=== PATIENT | female | born 1960 | race Caucasian/White ===

== ENCOUNTER 2022-10-07 18:58 | Emergency (ER) | payer MEDICAID, SELFPAY ==
[2022-10-07 18:58] VITALS: BP 148/79; PULSE 77; RESP 20; TEMP 37.4; O2SAT 97; BMI 34.3
--- NOTE | 2022-10-07 20:02 | EXP.UTC ---
Discharge Plan Disposition Patient Disposition: Home, Self-Care Condition: Good Prescriptions Prescriptions: New ondansetron 4 mg Tablet,Disintegrating 4 mg PO Q8H PRN (Reason: Nausea) Qty: 20 0RF Referrals Follow up/Referrals: Provider,Referral, MD [Primary Care Provider] - See instructions Activity Restrictions/Add. Instructions Additional Instructions/Restrictions: Drink plenty of fluids. Take tylenol or ibuprofen for pain or fever. Take the medications as directed. Follow up with your regular doctor. GO TO THE ER FOR ANY WORSENING SYMPTOMS Clinical Impressions Clinical Impression: Acute viral syndrome Instructions Patient Instructions: Coronavirus Disease 2019, Preventing the Spread of Coronavirus Discharge Instructions Dis[place] ED [place]car[place] Yi [facility] [place] General Stated complaint: vomiting, poss HBP Time Seen by Provider: 10/07/22 20:01 History of Present Illness Provider Complaint: She states that since this morning she has had had nausea and vomiting. She denies congestion, cough and shortness of breath. She has had diarrhea also. Related Data Previous Rx's Medication Instructions Recorded ondansetron 4 mg disintegrating 4 mg PO Q8H PRN Nausea #20 tabs 10/07/22 tablet Allergies Allergy/AdvReac Type Severity Reaction Status Date / Time aspirin Allergy Mild Verified 10/07/22 20:14 codeine Allergy Mild Verified 10/07/22 20:14 penicillin V Allergy Mild Verified 10/07/22 20:14 [facility] Disclaimer: The information contained in this section may have been updated after the patient was seen, as this information can be updated by other users. Social History Smoking Status: Never smoker alcohol intake: never current occupational status: employed Travel in the last 8 weeks: None ROS Obtained: Yes All systems reviewed & no additional complaints except as documented Constitutional Constitutional: Denies chills, Denies fever(s) and Reports poor appetite ENT Ears, Nose, Mouth, and Throat: Denies dizziness and Denies sore throat Cardiovascular Cardiovascular: Denies dyspnea Respiratory Respiratory: Denies chest congestion, Denies cough and Denies dyspnea Gastrointestinal Gastrointestingal: Reports as per HPI; Denies abdominal pain Genitourinary Female Genitourinary: Denies difficulty voiding, Denies dysuria, Denies hematuria, Denies urinary frequency, Denies urinary incontinence, Denies urinary hesitancy and Denies urinary urgency Musculoskeletal Musculoskeletal: Denies arthralgias Integumentary/Breasts Skin/Breast: Denies rash Neurologic Neurologic: Denies dizziness Physical Exam General General appearance: alert and in no apparent distress Head Head exam: atraumatic, normocephalic and normal inspection Eye Eye exam: Present normal appearance, PERRL and EOMI ENT ENT exam: Present normal exam, normal oropharynx, mucous membranes moist, TM's normal bilaterally and normal external ear exam Neck Neck exam: Present normal inspection, full ROM and trachea midline; Absent meningismus or lymphadenopathy Chest Chest inspection: Present normal inspection and symmetric chest wall rise; Absent tenderness Respiratory Respiratory exam: Present normal lung sounds bilaterally; Absent respiratory distress Cardiovascular Cardiovascular exam: Present regular rate and normal rhythm; Absent JVD Abdominal Exam Abdominal exam: Present soft and normal bowel sounds; Absent distention, tenderness or guarding Extremities Exam Extremities exam: Present normal inspection, full ROM and normal capillary refill; Absent calf tenderness Back Exam Back exam: Present normal inspection; Absent tenderness Neurological Exam Neurological exam: Present alert and oriented X3 Psychiatric Psychiatric exam: Present normal affect and normal mood Skin Skin exam: Present warm, dry, intact and normal color Lymphatic Lymphatic Findings: no adeno
[2022-10-07 20:17] LABS: UTC Strep Screen (Rapid) Negative (Negative)
[2022-10-07 20:18] LABS: UTC Influenza A Antigen Negative (Negative); UTC Influenza B Antigen Negative (Negative)
[2022-10-07 20:46] VITALS: BP 148/79; PULSE 77; RESP 20; TEMP 37.4; O2SAT 97
== END 2022-10-07 20:46 | disposition home or self-care (01) ==
PROVIDERS: Emergency Provider Nurse Practitioner Family
DX: B34.9 Viral infection, unspecified (principal); R11.2 Nausea with vomiting, unspecified; R19.7 Diarrhea, unspecified
CPT/HCPCS: 87804; 87880; 99212; 99213; G0463

== ENCOUNTER 2022-10-20 13:54 | Emergency (ER) | payer MEDICAID, SELFPAY ==
[2022-10-20 13:54] VITALS: BP 150/74; PULSE 73; RESP 18; TEMP 37.1; O2SAT 97; BMI 34.3
[2022-10-20 14:00] VITALS: BP 155/82; PULSE 66; O2SAT 98
--- NOTE | 2022-10-20 14:06 | HMH.EDGENADL ---
Discharge Plan Disposition Patient Disposition: Home, Self-Care Prescriptions Prescriptions: No Action ondansetron 4 mg Tablet,Disintegrating 4 mg PO Q8H PRN (Reason: Nausea) Qty: 20 0RF Referrals Follow up/Referrals: Provider,Referral, [Primary Care Provider] - See instructions Activity Restrictions/Add. Instructions Additional Instructions/Restrictions: You may take Tylenol or ibuprofen [id number] as needed for pain. Please follow-up with your primary care physician if you have any other concerns. Clinical Impressions Clinical Impression: Cervical muscle strain, Chest wall contusion, Left shoulder strain, Muscle strain of left upper arm Discharge ED Provider: Yuval Chadwick Adult HPI General Chief complaint: Fall Stated complaint: Fall Time Seen by Provider: 10/20/22 14:06 History of Present Illness HPI narrative: Patient is a 62-year-old female presenting after a fall. She is accompanied by her daughter who is also historian. Patient states that she fell down mechanically 6 stairs yesterday. She fell with her neck extended onto the back of her head as well as onto her left shoulder. States that her pain is primarily along the lower aspect of the midline of her cervical spine as well as the left shoulder and left anterior chest. Patient has been ambulatory. She is taken ibuprofen at home with mild improvement presented today to get assessed. Patient denies any neurologic complaints. Denies any abdominal discomfort or other long bone pain. She is not on anticoagulation. Denies any loss of consciousness or headache. Denies any other neurologic symptoms. Related Data Previous Rx's Medication Instructions Recorded ondansetron 4 mg disintegrating 4 mg PO Q8H PRN Nausea #20 tabs 10/07/22 tablet Allergies Allergy/AdvReac Type Severity Reaction Status Date / Time aspirin Allergy Mild Verified 10/07/22 20:14 codeine Allergy Mild Verified 10/07/22 20:14 penicillin V Allergy Mild Verified 10/07/22 20:14 [facility] Disclaimer: The information contained in this section may have been updated after the patient was seen, as this information can be updated by other users. Social History (Updated 10/07/22 @ 20:42 by Giancarlo Yi APRN) Smoking Status: Never smoker alcohol intake: never current occupational status: employed Travel in the last 8 weeks: None ROS Obtained: Yes All systems reviewed & no additional complaints except as documented Physical Exam General General appearance: alert, in no apparent distress and appears intoxicated Head Head exam: atraumatic and normocephalic Eye Eye exam: Present normal appearance, PERRL and EOMI ENT ENT exam: Present normal exam and normal oropharynx Neck Neck exam: Present normal inspection, full ROM, trachea midline and tenderness (There is midline cervical spine tenderness C5-6 and 7) Chest Chest inspection: Present normal inspection and tenderness (Left anterior chest wall tenderness) Respiratory Respiratory exam: Present normal lung sounds bilaterally; Absent respiratory distress, wheezes or stridor Cardiovascular Cardiovascular exam: Present regular rate and normal rhythm Abdominal Exam Abdominal exam: Present soft; Absent distention or tenderness Extremities Exam Extremities exam: Present other (All long bones otherwise palpated without any tenderness except for left humerus which is significant tenderness also there is tenderness over the lateral aspect of the left clavicle) Neurological Exam Neurological exam: Present alert and oriented X3 Medical Decision Making Bahman Inquiry Pt receiving controlled substance: No Vital Signs: 10/20/22 13:54 Temperature 98.7 F Temperature Source Oral Pulse Rate [Right Radial] 73 Respiratory Rate 18 Blood Pressure [Right Arm] 150/74 H Blood Pressure Mean [Right Arm] 99 Blood Pressure Source [Right Arm] Automatic Cuff Blood Pressure Position [Right Arm] Sitting 02 Sat by Pulse
--- NOTE | 2022-10-20 14:11 | XR_ITS ---
FINAL REPORT CLINICAL HISTORY: fall, pain FINDINGS: PORTABLE CHEST The heart is normal in size. The mediastinum is unremarkable. The lungs are clear. There is no pneumothorax. IMPRESSION: No acute process. Reviewed, Interpreted and Dictated by Mejia Samson MD Transcribed by Jazmine Patel Authenticated and [facility]
--- NOTE | 2022-10-20 14:11 | XR_ITS ---
FINAL REPORT CLINICAL HISTORY: fall, pain FINDINGS: LEFT SHOULDER 3 views of the left shoulder were obtained. There is no acute fracture or dislocation. The joint spaces are intact. There is no soft tissue abnormality. IMPRESSION: No acute bony abnormality. Reviewed, Interpreted and Dictated by Mejia Samson MD Transcribed by Jazmine Patel Authenticated and [facility]
--- NOTE | 2022-10-20 14:11 | CT_ITS ---
FINAL REPORT TECHNIQUE: Axial images were obtained of the cervical spine by computed tomography. Coronal and sagittal reconstruction process performed. This study was performed with techniques to keep radiation doses as low as reasonably achievable (ALARA). Individualized dose reduction techniques using automated exposure control or adjustment of mA and/or kV according to the patient's size were employed. CLINICAL HISTORY: fall, pain midline C5-7 FINDINGS: Cervical vertebrae show normal height. There is abnormal disc space narrowing at C4-5, C5-6 and C6-7 with posterior osteophytes and bilateral neuroforaminal narrowing. There is no malalignment. The facets are properly aligned. IMPRESSION: No acute bony abnormality identified. Hypertrophic changes at C4-5, C5-6 and C6-7. Reviewed, Interpreted and Dictated by Mejia Samson MD Transcribed by Jazmine Patel Authenticated and [facility]
--- NOTE | 2022-10-20 14:11 | XR_ITS ---
FINAL REPORT CLINICAL HISTORY: fall, pain FINDINGS: LEFT HUMERUS 2 views were obtained. There is no acute fracture or dislocation. The joint spaces are intact. There is no soft tissue abnormality. IMPRESSION: No acute bony abnormality. Reviewed, Interpreted and Dictated by Mejia Samson MD Transcribed by Jazmine Patel Authenticated and [facility]
--- NOTE | 2022-10-20 14:49 | PC.NURSE ---
called rad to check on status of rad reading, caleb states images are locked so they should be being ready
--- NOTE | 2022-10-20 15:34 | PC.NURSE ---
contacted rad to check on status of ct reading, states will send down preliminary reading
--- NOTE | 2022-10-20 15:35 | PC.NURSE ---
GOPI VALENCIA at discussing test results
[2022-10-20 16:02] VITALS: BP 162/84; PULSE 64; RESP 16; TEMP 37.1; O2SAT 99
== END 2022-10-20 16:02 | disposition home or self-care (01) ==
PROVIDERS: Emergency Provider Student in an Organized Health Care Education/Training Program
DX: S16.1XXA Strain of muscle, fascia and tendon at neck level, initial encounter (principal); S20.219A Contusion of unspecified front wall of thorax, initial encounter; S46.912A Strain of unspecified muscle, fascia and tendon at shoulder and upper arm level, left arm, initial encounter; W10.9XXA Fall (on) (from) unspecified stairs and steps, initial encounter
CPT/HCPCS: 71045; 72125; 73030; 73060; 99285

== ENCOUNTER 2022-12-02 07:54 | Emergency (ER) | payer MEDICAID, SELFPAY ==
--- NOTE | 2022-12-02 07:54 | ECG_ITS ---
APPROVED REPORT Exam: Resting ECG HR:56 bpm ECG Measurements Heart Rate 56 AXES VT 142 P 60 QRSd 95 QRS 40 QT 387 T 22 QTc 380 Conclusion SINUS BRADYCARDIA NONSPECIFIC T-WAVE ABNORMALITY BORDERLINE ECG INTERPRETATION BASED ON A DEFAULT AGE OF 40 YEARS UNCONFIRMED REPORT Electronically signed by : Tato Toledo MD 12/05/2022 16:50:20
[2022-12-02 07:59] VITALS: BP 151/82; PULSE 61; RESP 18; TEMP 36.4; O2SAT 97; BMI 34.3
--- NOTE | 2022-12-02 08:07 | XR_ITS ---
FINAL REPORT CLINICAL HISTORY: chest pain COMPARISON: 10/20/2022 FINDINGS: TWO-VIEW CHEST The heart size is normal. The mediastinum is normal. The lungs are clear. There is no pneumothorax. IMPRESSION: No acute cardiopulmonary process. Reviewed, Interpreted and Dictated by Mejia Samson MD Transcribed by Yris Evans Authenticated and [facility]
--- NOTE | 2022-12-02 08:14 | HMH.EDGENADL ---
Discharge Plan Disposition Patient Disposition: Home, Self-Care Prescriptions Prescriptions: No Action ondansetron 4 mg Tablet,Disintegrating 4 mg PO Q8H PRN (Reason: Nausea) Qty: 20 0RF Referrals Follow up/Referrals: Provider,Referral, [Primary Care Provider] - See instructions Activity Restrictions/Add. Instructions Additional Instructions/Restrictions: Your headache cough general malaise and conjunctivitis are all consistent with a viral syndrome most likely adenovirus as discussed. Your emergency work-up was otherwise negative and we will treat you supportively meaning we will treat your symptoms. I would take Tylenol and ibuprofen as needed at home return to the emergency department as needed. Clinical Impressions Clinical Impression: Headache, Acute viral syndrome, Conjunctivitis, URI (upper respiratory infection) Discharge ED Provider: Raven Chadwick General Adult HPI General Chief complaint: Chest Pain Stated complaint: chest pain Time Seen by Provider: 12/02/22 08:14 History of Present Illness HPI narrative: Patient is a 62-year-old female presenting with multiple complaints. First complaint is that she has had a cough for the last 48 hours. States she has had some intermittent chest pain associated with this that is nonspecific nonradiating not associated with dyspnea or diaphoresis or nausea. Additionally she states she woke up this morning with pinkeye . Lastly she states that she has had some dizziness that is intermittent in nature. She states her coordination and vision has not been off and this has not been consistent at any given moment. She does state that multiple household members are sick currently including her grandchild who is around her every day came in yesterday with a febrile illness and her son as well started to have nausea. Patient denies any other focal neurologic deficits currently denies any chest pain or dyspnea at the moment. States she overall just does not feel well. Related Data Previous Rx's Medication Instructions Recorded ondansetron 4 mg disintegrating 4 mg PO Q8H PRN Nausea #20 tabs 10/07/22 tablet Allergies Allergy/AdvReac Type Severity Reaction Status Date / Time aspirin Allergy Mild Verified 10/07/22 20:14 codeine Allergy Mild Verified 10/07/22 20:14 penicillin V Allergy Mild Verified 10/07/22 20:14 [facility] Disclaimer: The information contained in this section may have been updated after the patient was seen, as this information can be updated by other users. Social History (Updated 10/07/22 @ 20:42 by Giancarlo Yi APRN) Smoking Status: Never smoker alcohol intake: never current occupational status: employed Travel in the last 8 weeks: None ROS Obtained: Yes All systems reviewed & no additional complaints except as documented Physical Exam General General appearance: alert and in no apparent distress Eye Eye exam: Present conjunctival injection (On the left) Respiratory Respiratory exam: Present normal lung sounds bilaterally; Absent respiratory distress, wheezes or stridor Cardiovascular Cardiovascular exam: Present regular rate; Absent tachycardia Neurological Exam Neurological exam: Present alert, oriented X3, CN II-XII intact, normal gait and other; Absent motor sensory deficit Medical Decision Making Bahman Inquiry Pt receiving controlled substance: No Vital Signs: 12/02/22 07:59 12/02/22 08:30 Temperature 97.5 F L Temperature Source Oral Pulse Rate 67 Pulse Rate [Apical] 61 Respiratory Rate 18 Blood Pressure 174/95 H Blood Pressure [Right Arm] 151/82 H Blood Pressure Mean 121 Blood Pressure Mean [Right Arm] 105 Blood Pressure Source [Right Arm] Automatic Cuff Blood Pressure Position [Right Arm] Sitting 02 Sat by Pulse Oximetry 97 98 Oxygen Delivery Method Room Air Room Air Lab Data Lab results reviewed: Yes I reviewed the patient's lab results. Lab Results 12/02/22 08:13: WBC 8.2,
[2022-12-02 08:17] VITALS: BMI 34.3
--- NOTE | 2022-12-02 08:17 | PC.NURSE ---
GOPI VALENCIA at
--- NOTE | 2022-12-02 08:17 | PC.NURSE ---
GOPI VALENCIA at for pt saraal
[2022-12-02 08:22] LABS: Basophils # 0.1 K/mm3 (0-0.2); Basophils % 1.6 % (0.1-2.0); Eosinophils # 0.2 K/mm3 (0.0-0.4); Eosinophils % 2.6 % (0.1-12.0); Hematocrit 38.9 % (37.0-47.0); Hemoglobin 12.6 g/dL (12.2-16.2); Lymphocytes # 2.2 K/mm3 (0.7-4.5); Lymphocytes % 26.9 % (10-50); Mean Corpuscular HGB Conc 32.4 g/dL (31.8-35.4); Mean Corpuscular Hemoglobin 30.3 pg (27.0-31.2); Mean Corpuscular Volume 93.5 fl (81-99); Mean Platelet Volume 9.5 fl (7.4-10.4); Monocytes # 0.5 K/mm3 (0.1-1.0); Monocytes % 5.6 % (1.7-9.3); Neutrophils # 5.2 K/mm3 (1.8-7.8); Neutrophils % 63.3 % (37.0-80.0); Platelet Count 232 K/mm3 (142-424); Red Blood Count 4.17 M/mm3 (4.20-5.40); Red Cell Distribution Width 13.3 % (11.5-17.5); White Blood Count 8.2 K/mm3 (4.8-10.8)
--- NOTE | 2022-12-02 08:22 | PC.NURSE ---
To XR via wheelchair
--- NOTE | 2022-12-02 08:27 | PC.NURSE ---
pt to xray
[2022-12-02 08:30] VITALS: BP 174/95; PULSE 67; O2SAT 98
[2022-12-02 08:30] LABS: Chloride 106 mmol/L (98-107); Potassium 4.3 mmoL/L (3.5-5.1); Sodium 138 mmol/L (136-145)
--- NOTE | 2022-12-02 08:32 | PC.NURSE ---
pt from XR via wheelchair
[2022-12-02 08:33] LABS: Alanine Aminotransferase 23 U/L (12-78); Albumin Level 3.9 g/dl (3.5-5.0); Alkaline Phosphatase 75 U/L (38-126); Anion Gap 9.3 mEq/L (5-15); Aspartate Amino Transferase 27 U/L (14-36); Bilirubin,Direct 0.2 mg/dl (0.0-0.4); Bilirubin,Indirect 0.1 mg/dL (0.0-0.9); Bilirubin,Total 0.3 mg/dl (0.2-1.3); Blood Urea Nitrogen 24 mg/dl (7-17); Carbon Dioxide 27 mmol/L (22.0-30.0); Creatinine Clearance Estimated 85 mL/min (50-200); Estimated Glomerular Filt Rate 73 ml/min (>60); GFR (African American) 88 ML/MIN (>60); Total Protein,Serum 6.8 g/dl (6.3-8.2)
[2022-12-02 08:34] LABS: Calcium 9.4 mg/dl (8.4-10.2); Glucose 107 mg/dl (74-100)
[2022-12-02 08:48] LABS: Troponin I < 0.01 ng/ml (0.00-0.034)
[2022-12-02 08:59] LABS: Coronavirus 19, PCR Not Detected (NotDetected); Influenza A, PCR Not Detected (NotDetected); Influenza B, PCR Not Detected (NotDetected)
--- NOTE | 2022-12-02 09:40 | PC.NURSE ---
GOPI VALENCIA at for update on POC
[2022-12-02 09:57] VITALS: BP 147/74; PULSE 74; RESP 17; TEMP 36.8; O2SAT 97
== END 2022-12-02 10:20 | disposition home or self-care (01) ==
PROVIDERS: Emergency Provider Student in an Organized Health Care Education/Training Program
DX: R51.9 Headache, unspecified (principal); H10.32 Unspecified acute conjunctivitis, left eye; J06.9 Acute upper respiratory infection, unspecified; B34.9 Viral infection, unspecified; R00.1 Bradycardia, unspecified
CPT/HCPCS: 71046; 80048; 80076; 84484; 85025; 93005; 96360; 96374; 96375; 99285; C9803; U0003; U0005